=== PATIENT | female | born 1975 | race Caucasian/White ===

== ENCOUNTER → 2017-12-31 13:09 | Outpatient (CLI) | payer OTHER, SELFPAY ==
[2017-12-31 16:00] LABS: Absolute Lymphocyte Count 2.27 X10^3/ul (0.83-4.51); Absolute Neutrophil Count 6.6 X10^3/uL (2.0-7.7); Basophil# 0.02 X10^3/uL; Basophil% 0.2 % (0-1); Eosinophil# 0.31 X10^3/uL; Eosinophils% 3.2 % (0-5); Hematocrit 39.1 % (37-47); Hemoglobin 12.9 g/dl (12.0-15.0); Lymphocyte # 2.27 X10^3/ul (4.0); Lymphocyte % 23.1 % (19-41); Mean Corpuscular Hgb 30.4 pg (27.0-32.0); Mean Corpuscular Volume 92.2 fL (81-99); Mean Platelet Vol. 12.3 fl (6.2-12.0); Monocyte# 0.61 X10^3/uL; Monocyte% 6.2 % (0-10); Neutrophil # 6.59 X10^3/uL (2.7-7.7); Neutrophil % 67.2 % (47-70); Platelet Count 272 K/mm3 (150-450); RBC Distribution Width CV 13.3 % (11.6-14.6); RBC Distribution Width SD 45.1 fl (35.1-43.9); Red Blood Count 4.24 M/mm3 (4.2-5.4); White Blood Count 9.8 K/mm3 (4.4-11.0)
[2017-12-31 16:02] LABS: POSITIVE COUNT NO; POSITIVE DIFFERENTIAL NO; POSITIVE MORPHOLOGY NO
[2017-12-31 16:28] LABS: Vitamin B12 689 pg/mL (211-911)
[2017-12-31 16:36] LABS: Anion Gap 10 (5-15); BUN 22 mg/dL (7-18); BUN/Creat Ratio 29.5 RATIO (10-20); Calcium,Total 8.8 mg/dL (8.5-10.1); Chloride 103 mmol/L (98-107); Creatinine, Serum 0.75 mg/dL (0.55-1.02); EST Glomerular Filtration Rate 91 mL/min (>60); Est Glom Filt Rate - Afr Amer 111 mL/min (>60); Glucose 110 mg/dL (74-106); Potassium 3.9 mmol/L (3.5-5.1); Sodium Level 140 mmol/L (136-145); T4 Free Direct 1.16 ng/dL (0.76-1.46); Thyroid Stim Hormone (TSH) 1.63 uIU/mL (0.358-3.74)
== END ==
PROVIDERS: Visit Provider Family Medicine
DX: R53.83 Other fatigue (principal); R20.2 Paresthesia of skin
CPT/HCPCS: 36415; 80048; 82607; 84439; 84443; 85025

== ENCOUNTER → 2020-07-13 | Outpatient (CLI) | payer OTHER, SELFPAY ==
[2020-07-13 14:17] VITALS: BMI 19.3
[2020-07-19 16:38] LABS: HPV APTIMA, High Risk Negative (Negative)
== END | disposition home or self-care (01) ==
LOC: LABSPEC 16:46
PROVIDERS: PCP Family Medicine; Visit Provider Nurse Practitioner Women's Health
DX: Z12.4 Encounter for screening for malignant neoplasm of cervix (principal)
CPT/HCPCS: 87624; 88175; G0145

== ENCOUNTER → 2021-07-15 | Outpatient (CLI) | payer OTHER, SELFPAY ==
--- NOTE | 2021-07-15 13:47 | US_ITS ---
STUDY: LEFT BREAST ULTRASOUND EXAMINATION OF 1504 HOURS ON 07/15/2021 REASON FOR EXAM: 45-year-old female with palpable lesion in the left breast. TECHNIQUE: Axial and longitudinal images of the LEFT breast were performed with a high resolution ultrasound transducer. # OF IMAGES: 11 COMPARISON: None. FINDINGS: There is a 7 mm x 4 mm x 7mm simple cyst at 12:00 to 1:00 in the left breast lying 5 mm beneath the skin surface. There is no evidence of a cystic or solid mass lesions in the left breast. There is no evidence of left breast calcifications. Mild fibroglandular changes are present. US/Breast Limited Unilateral IMPRESSION: 1. Presence of a 7 mm x 4 mm x 7 mm simple cyst at 12:00 to 1:00 in the left breast lying 5 mm beneath the skin surface-thoracic site of the palpable lump. 2. No evidence of other cystic or solid mass lesions in the left breast. 3. Mild fibroglandular changes in the left breast. ASSESSMENT CATEGORY: BIRADS Category 1 ultrasound examination of the left breast. Electronically Signed: Herson Peterson MD at 19:37 EDT ,
--- NOTE | 2021-07-15 13:50 | BI_ITS ---
MAMMOGRAPHY - BILATERAL DIAGNOSTIC REASON FOR EXAM: Female, 45 years old. LUMP PERTINENT HISTORY: Non-contributory. TECHNIQUE: Digital examination. Mediolateral oblique (MLO) and craniocaudad (CC) views of both breasts were obtained. CAD: CAD was performed on this study. COMPARISON: 03/22/2018 FINDINGS: Breast Composition: The breasts are extremely dense, which lowers the sensitivity of mammography. There are no dominant masses or suspicious calcifications. No other significant abnormalities are identified. BI/DIAG MAMM W/CAD, BILAT IMPRESSION: Stable bilateral diagnostic mammogram. Ultrasound of the palpable abnormality in the upper outer quadrant of the left breast will be obtained. ASSESSMENT CATEGORY: BIRADS Category 0: Incomplete. Need additional imaging evaluation. A letter regarding these results will be sent to the patient by the facility within 30 days. FOLLOW UP RECOMMENDATION: Ultrasound Recommended. (I) Approximately 10% of breast cancers are not detected by mammography. A normal mammogram should not delay biopsy of a clinically suspicious abnormality. Electronically Signed: Isai Deutsch MD at 14:29 EDT ,
== END | disposition home or self-care (01) ==
PROVIDERS: PCP Family Medicine; Referring Provider Nurse Practitioner Women's Health; Visit Provider Nurse Practitioner Women's Health
DX: N63.0 Unspecified lump in unspecified breast (principal); R92.8 Other abnormal and inconclusive findings on diagnostic imaging of breast
CPT/HCPCS: 76642; 77062; 77066; G0279

== ENCOUNTER → 2022-09-04 | Outpatient (CLI) | payer OTHER, SELFPAY ==
[2022-09-04 12:33] LABS: Absolute Lymphocyte Count 1.82 X10^3/uL (0.83-4.51); Absolute Neutrophil Count 4.3 X10^3/uL (2.0-7.7); Basophil# 0.07 X10^3/uL; Basophil% 0.9 % (0-1); Eosinophil# 0.61 X10^3/uL; Eosinophils% 8.3 % (0-5); Hematocrit 41.8 % (37-47); Hemoglobin 13.6 g/dL (12.0-15.0); Lymphocyte # 1.82 X10^3/ul (0.83-4.51); Lymphocyte % 24.6 % (19-41); Mean Corp Hgb Conc 32.5 g/dL (32-36); Mean Corpuscular Volume 92.3 fL (81-99); Mean Platelet Vol. 11.8 fl (6.2-12.0); Monocyte# 0.59 X10^3/uL; NRBC Flagged by Analyzer 0 % (0-5); Neutrophil # 4.28 X10^3/uL (2.7-7.7); Neutrophil % 57.9 % (47-70); Platelet Count 253 K/mm3 (150-450); RBC Distribution Width SD 43.8 fl (35.1-43.9); Red Blood Count 4.53 M/mm3 (4.2-5.4); White Blood Count 7.4 K/mm3 (4.4-11.0)
[2022-09-04 13:57] LABS: ALB/GLOB Ratio 1.1 RATIO (0.9-2.4); AST(SGOT) 18 U/L (15-37); Alanine Aminotransfer ALT/SGPT 21 U/L (13-56); Albumin, Serum 3.7 g/dL (3.2-5.0); Alkaline Phosphatase 51 U/L (45-117); Anion Gap 8 (5-15); BUN 16 mg/dL (7-18); Calcium,Total 9.1 mg/dL (8.5-10.1); Chloride 106 mmol/L (98-107); Cholesterol 145 mg/dL (200); Creatinine, Serum 0.73 mg/dL (0.55-1.02); EST Glomerular Filtration Rate 92 mL/min (>60); Est Glom Filt Rate - Afr Amer 111 mL/min (>60); Globulin 3.4 g/dL (2.2-4.2); Glucose 78 mg/dL (74-106); High Density Lipoprotein 54 mg/dL; Magnesium 2.4 mg/dL (1.6-2.6); Potassium 3.7 mmol/L (3.5-5.1); Protein, Total 7.1 g/dL (6.4-8.2); Sodium Level 139 mmol/L (136-145); Triglycerides 86 mg/dL; Very Low Density Lipoprotein 17 mg/dL (5-40)
[2022-09-04 14:21] LABS: Hemoglobin A1c 5.2 % (3.8-5.6)
== END | disposition home or self-care (01) ==
LOC: BFHLAB 08:48
PROVIDERS: PCP Nurse Practitioner Family; Referring Provider Nurse Practitioner Family; Visit Provider Nurse Practitioner Family
DX: Z00.00 Encounter for general adult medical examination without abnormal findings (principal); E55.9 Vitamin D deficiency, unspecified; Z83.3 Family history of diabetes mellitus
CPT/HCPCS: 36415; 80053; 80061; 82306; 83036; 83735; 85025

== ENCOUNTER → 2023-03-15 | Outpatient (CLI) | payer OTHER, SELFPAY ==
--- NOTE | 2023-03-15 12:39 | RAD_ITS ---
HISTORY: constipation. TECHNIQUE: XR Abdomen 1 View. COMPARISON: 01/13/2016. FINDINGS: BOWEL GAS PATTERN: No dilated bowel loops identified. Scattered stool and air throughout the colon. FREE AIR: Not assessed on supine view. CALCIFICATIONS: No abnormal calcifications observed. BONES: Unremarkable. SOFT TISSUES: Lung bases clear. RAD/Abdomen Single View IMPRESSION: Non-obstructive bowel gas pattern. Electronically Signed: Patricia Cruz MD at 8:52 EST ,
--- OUTSIDE RECORDS SUMMARY | 2023-03-15 14:01 | XMS RPT_ITS | CCD ---
Author Name Unknown Address [id number] [place] [address] Organization [facility] Care Team Providers Care Technician Plant And Maintenance Name Role Phone Kayley BRODERICK, Neal Lambert Unavailable [phone] CALEB BATISTA Primary Care Unavailab le Allergies Allergy Classification Reported Allergen(s) Allergy Type Date of Onset Reaction(s) Facility (3 sources) amoxicillin / clavulanate drug allergy 09-19-[address] [facility] Work Phone: (3 sources) sulfamethoxazole / trimethoprim drug allergy 09-19-[address] [facility] Work Phone: (1 source) Sulfamethoxazole / Trimethoprim; Translations: [SULFAMETHOXAZOLE-TR IMETHOPRIM] Drug Allergy 02-15-19 16 [facility] (1 source) OTHER; Translations: [OTHER] Propensity to adverse reactions (disorder) 01-25-20 05 [facility] (1 source) AMOXICILLIN-POT CLAVULANATE; Translations: [AMOXICILLIN-POT CLAVULANATE] Propensity to adverse reactions to drug (disorder) 01-24-20 05 [facility] Medications Completed/Discontinued Medications Medication Drug Class(es) Dates Sig (Normalized) Sig (Original) calcium (1 source) Phosphate Binder, Calcium Start: 09-18-2016 take 1 tablet by mouth twice daily CALCIUM + D3 600-800 MG-UNIT TABS One tablet by mouth twice daily CALCIUM CARB-CHOLECALCIFERO L [id number] Neal Zaldivar MD CALCIUM CARB-CHOLECALCIFER OL (2 sources) Start: 09-18-2016 take 600-800 tablets by mouth twice daily CALCIUM + D3 600-800 MG-UNIT TABS One tablet by mouth twice daily CALCIUM CARB-CHOLECALCIFERO L [id number] Neal Zaldivar MD MULTIPLE VITAMINS-MINERALS (1 source) Start: 09-18-2016 take 1 tablet by mouth once daily DAILY MULTIVITAMIN CAPS One tablet by mouth daily MULTIPLE VITAMINS-MINERALS [id number] Neal Zaldivar MD MULTIPLE VITAMINS-MINERALS (2 sources) Start: 09-18-2016 take 1 tablet by mouth once daily DAILY MULTIVITAMIN CAPS One tablet by mouth daily MULTIPLE VITAMINS-MINERALS [id number] Neal Zaldivar MD Problems Active Problems Problem Classification Problem Date Documented Da te Episodic/Chronic Headache; including migraine (3 sources) Migraine; Translations: [Migraine, unspecified, not intractable, without status migrainosus] Onset: 09-18-2016 09-18-2016 Chronic Past or Other Problems Problem Classification Problem Date Documented Date Episodic/Chronic Headache; including migraine (3 sources) Pain of head and neck region; Translations: [Pain, unspecified] Onset: 09-18-2016 09-20-2016 Episodic Other complications of (3 sources) deep vein thrombosis with complication; Translations: [Deep phlebothrombosis in , unspecified trimester] Onset: 09-18-2016 09-18-2016 Episodic Other skin disorders (3 sources) Sebaceous cyst; Translations: [Sebaceous cyst] Onset: 09-18-2016 09-20-2016 Episodic Other skin disorders (1 source) Epidermoid cyst of skin; Translations: [Sebaceous cyst] Onset: 09-22-2016 10-16-2016 Episodic Results Test Name Value Interpretation Reference Range Facil ity Vital Signs Date Time Vital Sign Value Performing Clinician Facility 09-18-2016 10:24-0400 BMI (Body Mass Index) 19.39 kg/m2 Neal Zaldivar MD [facility] Work Phone: 09-18-2016 10:24-0400 BP Diastolic 73 mm[Hg] Neal Zaldivar MD [facility] Work Phone: 09-18-2016 10:24-0400 BP Systolic 101 mm[Hg] Neal Zaldivar MD [facility] Work Phone: 09-18-2016 10:24-0400 Height 162.56 cm Neal Zaldivar MD [facility] Work Phone: 09-18-2016 10:24-0400 Pulse (Heart Rate) 61 /min Neal Zaldivar MD [facility] Work Phone: 09-18-2016 10:24-0400 Respiratory Rate 16 /min Neal Zaldivar MD [facility] Work Phone: 09-18-2016 10:24-0400 Weight 51.26 kg Neal Zaldivar MD [facility] Work Phone: Encounters Encounter Date Encounter Type Care Provider Facility Start: 02-09-2023 End: 02-09-2023 ambulatory CALEB BATISTA Facility:[facility] Procedures Date Procedure Procedure Detail Performing Clinician Start: 09-22-2016 End: 10-16-2016 Biopsy skin subq&/mucous membrane ea addl lesn Neal Zaldivar MD Work Phone: Start: 09-22-2016 End: 10-16-2016 Bx skin subcutaneous&/mucous membrane 1 lesion Neal Zaldivar MD Work Phone: Plan of Treatment Date Care Activity Detail Author Start: 09-22-2016 End: 09-22-[address] [facility] Work Phone: [facility] Work Phone: Payers Date Payer Category Payer Unknown [id number] Progress note 02-09-2023 Note Date & Type Note Facility 02-09-2023 Note HNO ID: [id number] Author: CARTER TOLEDO APRN.FREIGHT SORTER Service: ? Author Type: Nurse Practitioner Type: Progress Notes Filed: 02/09/2023 17:04 Note Text: This note was created using NoteWriter. Krishna Block is a 47 year old female. 47 year old female with PMH migraines presents for complaints of illness. Acute onset 2 weeks ago +sore throat +dry cough +ear pain Denies N/V/D Denies fever or chills Denies malaise or fatigue Denies skin rash or lesions. Seen by her PCP last week for similar The history is provided by the patient. No escrow officer was used. URI She complains of cough. There is no chest tightness, difficulty breathing, frequent throat clearing, hemoptysis, hoarse voice, shortness of breath, sputum production or wheezing. This is a new problem. The current episode started 1 to 4 weeks ago. The problem occurs constantly. The problem has been unchanged. The cough is non-productive. Associated symptoms include ear congestion, ear pain, headaches, malaise/fatigue and a sore throat. Pertinent negatives include no appetite change, chest pain, dyspnea on exertion, fever, heartburn, myalgias, nasal congestion, orthopnea, PND, postnasal drip, rhinorrhea, sneezing, sweats, trouble swallowing or weight loss. Her symptoms are aggravated by nothing. Her symptoms are alleviated by nothing. She reports no improvement on treatment. There are no known risk factors for lung disease. There is no history of asthma,bronchiectasis, bronchitis, COPD, emphysema or pneumonia. PAST MEDICAL HISTORY Diagnosis Date Diabetes mellitus of mother, complicating , childbirth, or the puerperium, unspecified as to episode of care(648.00) Gestational diabetes Hx of blood clots 2012 during superficial Thrombophlebitis Migraine, unspecified, with intractable migraine, so stated, without mention of status migrainosus Migraine Other and unspecified ovarian cyst 2012 Ovarian cyst PMH - PAST MEDICAL HISTORY OF Seasonal allergies PMH - PAST MEDICAL HISTORY OF Irregular heartbeat Rh negative status during 07/22/2012 Urinary calculus, unspecified Renal stones Varicosities RIGHT LEG PAST SURGICAL HISTORY Procedure Laterality Date DELIVERY ONLY , low cervical DELIVERY ONLY 01/24/2013 , low transverse F SALPINGO-OOPHORECTOMY 2013 right, cystadenoma PAST SURGICAL HISTORY OF [place] teeth extracted PAST SURGICAL HISTORY OF cysts removed from head and torso ALLERGIES Bactrim [Sulfamethoxazole-Trimethoprim], Seasonal Allergies, and Augmentin [Amoxicillin-Pot Clavulanate] MEDICATIONS MAGNESIUM ORAL Take by mouth. cyanocobalamin, vitamin B-12, (VITAMIN B-12 ORAL) Take by mouth. CALCIUM CARBONATE/VITAMIN D3 (CALCIUM + D ORAL) Take 600 mg by mouth twice daily. multivitamin tablet Take 1 tablet by mouth once daily. phenazopyridine (PYRIDIUM) 100 mg tablet Take 1 tablet by mouth three times daily as needed for Pain. FAMILY HISTORY Problem Relation Age of Onset Arthritis Mother Cancer Mother skin ot melanoma Osteoporosis Maternal Grandmother Stroke Maternal Grandmother Heart Maternal Grandfather AL Diabetes Maternal Grandfather Diabetes Paternal Aunt Heart Sister irregular heartbeat Arthritis Paternal Aunt Arthritis Paternal Aunt Lipids Maternal Uncle Lipids Maternal Uncle Asthma Daughter other (hip fracture) Paternal Aunt Social History Tobacco Use Smoking status: Never Smokeless tobacco: Never Substance Use Topics Alcohol use: Yes Comment: Occasionally,NOT WHILE 2 per year Drug use: No Review of Systems Constitutional: Positive for malaise/fatigue. Negative for appetite change, fever and weight loss. HENT: Positive for ear pain and sore throat. Negative for hoarse voice, postnasal drip, rhinorrhea, sneezing and trouble swallowing. Eyes: Negative for pain, discharge, redness and itching. Respiratory: Positive for cough. Negative for apnea, hemoptysis, sputum production, choking, chest tightness, shortness of breath and wheezing. Cardiovascular: Negative for chest pain, dyspnea on exertion and PND. Gastrointestinal: Negative for abdominal pain, diarrhea, heartburn, nausea and vomiting. Musculoskeletal: Negative for arthralgias, back pain, gait problem and myalgias. Skin: Negative for color change, pallor, rash and wound. Allergic/Immunologic: Negative for environmental allergies, food allergies and immunocompromised state. Neurological: Positive for headaches. Negative for dizziness, facial asymmetry, light-headedness and numbness. Hematological: Negative for adenopathy. Does not bruise/bleed easily. Psychiatric/Behavioral: Negative for agitation and behavioral problems. Objective BP 115/80 Pulse 99 Temp 36.4 ?C (97.5 ?F) Resp 18 Wt 51.1 kg (112 lb 9.6 oz) LMP 03/13/2018 SpO2 99% BMI 19.03 kg/m? Physical E (more content not included)... [facility] Summary Purpose Family History No Family History Records Found Advance Directives No Advanced Directives Records Found Additional Source Comments INFORMATION SOURCE (unrecogn ized section and content) FOR RECORDS PERTAINING TO PATIENTS WHO ARE OR HAVE BEEN ENROLLED IN A CHEMICAL DEPENDENCY/SUBSTANCEABUSE PROGRAM, SOME INFORMATION MAY BE OMITTED. This clinical summary was aggregated from multiple sources. Caution should be exercised in using it in the provision of clinical care. This summary normalizes information from multiple sources, and as a consequence, information in this document may materially change the coding, format and clinical context of patient data. In addition, data may be omitted in some cases. CLINICAL DECISIONS SHOULD BE BASED ON THE PRIMARY CLINICAL RECORDS. [employer] [facility]. provides no warranty or guarantee of the accuracy or completeness of information in this document.
== END | disposition home or self-care (01) ==
LOC: MTRAD 12:37
PROVIDERS: PCP Nurse Practitioner Family; Referring Provider Family Medicine; Visit Provider Family Medicine
DX: K59.00 Constipation, unspecified (principal)
CPT/HCPCS: 74018

== ENCOUNTER 2024-01-19 19:53 | Emergency (ER) | payer OTHER, SELFPAY ==
[2024-01-19 19:55] VITALS: BP 77/50; PULSE 94; RESP 16; TEMP 36.7; O2SAT 97
[2024-01-19 20:08] VITALS: BP 94/66; PULSE 85; RESP 13; O2SAT 100
[2024-01-19 20:12] VITALS: BMI 19.7
--- NOTE | 2024-01-19 20:12 | EKG12_ITS ---
Test Reason : DYSRHYTHMIA Blood Pressure : */* mmHG Vent. Rate : 85 BPM Atrial Rate : 85 BPM P-R Int : 144 ms QRS Dur : 80 ms QT Int : 382 ms P-R-T Axes : 81 89 70 degrees QTcB Int : 454 ms Normal sinus rhythm Biatrial enlargement Abnormal ECG Confirmed by RUDY BRODERICK, RUBEN ([id number]), primer expeditor and drier HOUST[place] DAY ([id number]) on 01/23/2024 1:40:01 P M Referred By: Confirmed By: RUBEN GRANT MD
--- NOTE | 2024-01-19 20:12 | CT_ITS ---
STUDY: CT BRAIN WITHOUT CONTRAST REASON FOR EXAM: Female, 48 years old. headache, syncope RADIATION DOSAGE (If Supplied By Facility): CTDIvol = ( 44.99 ) mGy, DLP = ( 812.98 ) mGycm TECHNIQUE: Transaxial CT imaging of the brain was performed without administration of intravenous contrast material. Individualized dose optimization techniques were used for this CT. COMPARISON: No relevant priors. FINDINGS: Normal soft tissue structures. Normal calvarium. Normal size ventricles and extra-axial spaces for the patient''s age. Normal white matter tracts of the cerebral hemispheres. Normal basal ganglia and thalami. Normal brainstem. Normal cerebellum. There is no intracranial hemorrhage. There are no findings of an acute ischemic infarction. Trace mucosal thickening right ethmoid sinus. CT/Brain/Head without Contrast IMPRESSION: No acute findings. Trace chronic sinusitis. Electronically Signed: Shey Pepper MD at 21:20 EST Reading Location ID and State: [id number] / Tel , Service support ,
--- NOTE | 2024-01-19 20:14 | EDS_ITS ---
HPI History of Present Illness Chief Complaint: Nausea/Vomiting/Diarrhea Narrative Narrative: Patient is a 48-year-old female who presents to the emergency department chief complaint of nausea, vomiting, diarrhea, headache and not feeling well. Patient states that when she woke up this morning she had a headache that progressively worsened. States that she does have a history of migraines and this felt like a migraine. 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 According to the patient's significant other at bedside that he notes that around 3 PM this afternoon she started to have episodes of vomiting. She states that she is also had approximately 6 episodes of diarrhea. According to the significant other bedside he noted that while she was laying in the floor after taking a bath since she is not feeling well she appeared to pass out as he states that he was trying to wake her up and he cannot. Patient denies hitting her head. Patient states that she has not had chest pain, shortness of breath or lightheadedness dizziness prior to this episode. [facility] Medical History Varicose veins of legs Chronic constipation H/O blood clots Home Medications ?Medication ?Instructions ?Recorded ?Last Taken ?Type aspirin 81 mg tablet,delayed 81 mg PO DAILY 07/13/20 01/19/24 History release (Adult Aspirin Regimen) Allergy/AdvReac Type Severity Reaction Status Date / Time amoxicillin trihydrate (From Allergy Intermediate Hives Verified 01/19/24 19:57 Augmentin) sulfamethoxazole (From Allergy Intermediate Hives Verified 01/19/24 19:57 Bactrim) trimethoprim (From Bactrim) Allergy Intermediate Hives Verified 01/19/24 19:57 potassium clavulanate (From Allergy Hives Verified 01/19/24 19:57 Augmentin) Surgical History History of right oophorectomy S/P Social History household members: spouse and children number of children: 2 current occupational status: employed current occupation: [employer] history of recent travel: No sexually active: Yes Smoking Status: Never smoker alcohol intake: current alcohol intake frequency: holidays/special occasions only substance use type: does not use what type of physical activity do you participate in: walking seatbelt use: always do you feel safe at home: Yes additional social history: - Javad THOMASON ROS ED ROS Narrative Constitutional: Complains of headache as noted above denies fevers, chills, lightness, dizziness Eyes: Denies change in vision double vision blurry vision Cardiovascular: Denies chest pain or palpitations Respiratory: Denies coughing wheezing shortness of breath Abdomen: Denies abdominal pain nausea vomit diarrhea : Denies urinary symptoms Neurological: Denies any numbness,complains of generalized weakness, tingling Musculoskeletal: Denies back pain Skin: Denies any rashes or lesions EXAM Physical Exam Narrative Exam Narrative: General: Patient lying in bed rest comfortably did not appear to be in acute distress Head: Atraumatic, normocephalic Eyes, ears, nose, throat: Mucous membranes dry. PERRL bilateral, EOMI bilateral, no conjunctival injection noted Neck: Soft, supple, trachea midline Cardiovascular: Regular in rhythm no murmurs gallops rubs noted Respiratory: Clear to auscultation bilaterally no rales rhonchi or wheeze noted Abdomen: Soft, nondistended, no tenderness to palpation, bowel sounds present x 4 Extremities: +5/5 strength noted in the bilateral upper and lower extremities, radial pulses +2/4 in the bilateral per extremities Neurological: Patient follow commands and that she was at [facility] years 2023. NIH of 0 GCS 15 Skin: Warm, dry, intact no rashes or lesions noted Const Vital Signs: 01/19/24 19:55 01/19/24 20:08 01/19/24 21:00 Temperature 98.1 F 98.1 F Temperature Source Oral Oral Pulse Rate 94 85 92 Respiratory Rate 16 13 15 Blood Pressure 77/50 L 94/66 89/58 L Blood Pressure Mean 59 75 68 Pulse Ox 97 100 97 Oxygen Delivery Method Room Air Room Air Room Air 01/19/24 22:00 Temperature 98.1 F Temperature Source Oral Pulse Rate 91 Respiratory Rate 16 Blood Pressure 97/64 Blood Pressure Mean 75 Pulse Ox 100 Oxygen Delivery Method Room Air MDM MDM MDM Narrative Medical decision making narrative: Patient is a 48-year-old female who presented to the emergency department chief complaint of nausea, vomiting, diarrhea and a headache. Patient will have workup performed here on the differential diagnose includes but not limited to migraine headache, viral gastroenteritis, vasovagal syncope, ACS, intracranial hemorrhage. Patient be given IV fluids, Reglan and be reevaluated. Patient CBC reviewed and was significant for leukocytosis of 20,000, hemoglobin was 13.7, plate count normal at 234. Patient's sodium was noted to be normal at 138, potassium was 3.5, creatinine was 0.52. Patient AST and ALT are 14 and 20 respectively, lipase normal at 24. Patient's urinalysis reviewed and showed 150 ketones, negative nitrates, 100 leukocyte esterase and microscopic urine is pending. Patient's chest x-ray reviewed by myself and radiology showed no acute cardiopulmonary process. Patient CT and brain reviewed showed no acute findings. Discussed with the patient her history of blood clots and she states that this occurred with and she has not had any issues since then. Do believe her syncopal/near syncopal episode after taking a hot shower and laying down was likely a vasovagal response. Will add on a CT abdomen pelvis with IV contrast to ensure there is nothing further going on in her abdomen. Patient's case will be signed out to overnight physician to review this and make ultimate disposition. At 2232 patient did ambulate here in the emergency department she states that she is feeling significantly improved at this point time. Lab Data Labs: Laboratory Results - last 24 hr 01/19/24 20:15 WBC 22.6 H RBC 4.56 Hgb 13.7 Hct 40.3 MCV 88.4 MCH 30.0 MCHC 34.0 RDW Std Deviation 42.4 RDW Coeff of Antonia 13.1 Plt Count 234 MPV 11.7 Immature Gran % (Auto) 0.600 Neut % (Auto) 91.3 H Lymph % (Auto) 1.8 L Wilcox % (Auto) 4.9 Eos % (Auto) 1.0 Baso % (Auto) 0.4 Absolute Neuts (auto) 20.7 H Absolute Lymphs (auto) 0.40 L Nucleated RBC % 0 Differential Comment SCANNED Sodium 138 Potassium 3.5 Chloride 108 H Carbon Dioxide 22.0 Anion Gap 9 BUN 21 H Creatinine 0.52 L Estim Creat Clear Calc 111.19 Est GFR (MDRD) Af Amer 162 Est GFR (MDRD) Non-Af 134 BUN/Creatinine Ratio 40.2 H Glucose 133 H Calcium 8.7 Total Bilirubin 0.70 AST 14 L ALT 20 Alkaline Phosphatase 46 Total Protein 6.8 Albumin 3.7 Globulin 3.1 Albumin/Globulin Ratio 1.2 Lipase 24 Radiography Diagnostic Testing: Clinical Impression(s) from Imaging Studies Brain CT 01/19/24 20:12 IMPRESSION: No acute findings. Trace chronic sinusitis. Electronically Signed: Shey Pepper MD at 21:20 EST Reading Location ID and State: [place] / Tel , Service support , Chest X-Ray 01/19/24 20:50 IMPRESSION: No radiographic evidence of acute cardiopulmonary disease. Electronically Signed: Shey Pepper MD at 21:58 EST Reading Location ID and State: [id number] / Tel , Service support , Discharge Plan Triage Chief Complaint: Nausea/Vomiting/Diarrhea ED Provider: Manpreet Mcleod Dx/Rx/DC Orders Prescriptions: No Action aspirin [Adult Aspirin Regimen] 81 mg tablet,delayed release (DR/EC) 81 mg PO DAILY Primary Care Provider: Liudmila Bach Referrals: Liudmila Bach, SALES AND MARKETING ADMINISTRATOR-C [Primary Care Provider] - Print Language: Portuguese
[2024-01-19] MEDS: 0.9% Normal Saline (1000mL) 1,000 ML 999 ML IV ×2 (20:22→22:07)
[2024-01-19] MEDS: Metoclopramide 10 MG/2 ML Vial IV (20:23)
[2024-01-19] MEDS: Acetaminophen 500 MG Tablet 1000 MG PO (20:23)
[2024-01-19 20:49] LABS: Absolute Neutrophil Count 20.7 X10^3/uL (2.0-7.7); Basophil# 0.08 X10^3/uL; Basophil% 0.4 % (0-1); Eosinophil# 0.22 X10^3/uL; Hematocrit 40.3 % (37-47); Hemoglobin 13.7 g/dL (12.0-15.0); Lymphocyte % 1.8 % (19-41); Mean Corpuscular Volume 88.4 fL (81-99); Mean Platelet Vol. 11.7 fl (6.2-12.0); Monocyte# 1.11 X10^3/uL; Monocyte% 4.9 % (0-10); NRBC Flagged by Analyzer 0 % (0-5); Neutrophil # 20.68 X10^3/uL (2.7-7.7); Neutrophil % 91.3 % (47-70); POSITIVE DIFFERENTIAL YES; Platelet Count 234 K/mm3 (150-450); RBC Distribution Width CV 13.1 % (11.6-14.6); RBC Distribution Width SD 42.4 fl (35.1-43.9); Red Blood Count 4.56 M/mm3 (4.2-5.4); White Blood Count 22.6 K/mm3 (4.4-11.0)
--- NOTE | 2024-01-19 20:50 | RAD_ITS ---
INDICATION: syncope EXAMINATION/TECHNIQUE: X-RAY - XR Chest 2 Views COMPARISON: FINDINGS: LINES/DEVICES: None. LUNGS: No consolidation, edema or effusion. No pneumothorax. MEDIASTINUM AND CARDIOVASCULAR STRUCTURES: Cardiac silhouette not enlarged. Central airways and mediastinal contour are unremarkable. BONES AND SOFT TISSUES: Unremarkable. RAD/Chest PA and Lateral IMPRESSION: No radiographic evidence of acute cardiopulmonary disease. Electronically Signed: Shey Pepper MD at 21:58 EST Reading Location ID and State: [id number] / Tel , Service support ,
[2024-01-19 20:53] LABS: Differential Indicated SCAN CRITERIA MET
[2024-01-19 21:00] VITALS: BP 89/58; PULSE 92; RESP 15; TEMP 36.7; O2SAT 97
[2024-01-19 21:06] LABS: ALB/GLOB Ratio 1.2 RATIO (0.9-2.4); AST(SGOT) 14 U/L (15-37); Alanine Aminotransfer ALT/SGPT 20 U/L (13-56); Albumin, Serum 3.7 g/dL (3.2-5.0); Alkaline Phosphatase 46 U/L (45-117); Anion Gap 9 (5-15); BUN 21 mg/dL (7-18); BUN/Creat Ratio 40.2 RATIO (10-20); Calcium,Total 8.7 mg/dL (8.5-10.1); Chloride 108 mmol/L (98-107); Creatinine, Serum 0.52 mg/dL (0.55-1.02); EST Glomerular Filtration Rate 134 mL/min (>60); Est Glom Filt Rate - Afr Amer 162 mL/min (>60); Estimated Creatinine Clearance 111.19 ml/min; Globulin 3.1 g/dL (2.2-4.2); Glucose 133 mg/dL (74-106); Lipase 24 U/L (13-75); Potassium 3.5 mmol/L (3.5-5.1); Protein, Total 6.8 g/dL (6.4-8.2); Sodium Level 138 mmol/L (136-145)
[2024-01-19 21:27] LABS: Differential Comment SCANNED
[2024-01-19 22:00] VITALS: BP 97/64; PULSE 91; RESP 16; TEMP 36.7; O2SAT 100
--- NOTE | 2024-01-19 22:00 | CT_ITS ---
INDICATION: elevated wbc EXAMINATION: CT Abdomen And Pelvis W/ Contrast Injection TECHNIQUE: Helically acquired images were obtained of the abdomen and pelvis with sagittal and coronal reconstructed images. Individualized dose optimization techniques were used for this CT. IV contrast dosage and agent: 75 mL of Isovue-[id number]. Oral contrast: None. COMPARISON: None. FINDINGS: VESSELS: No abdominal aortic aneurysm or dissection. LIVER: No evidence of a mass. No intrahepatic or extrahepatic biliary duct dilation. Hepatomegaly. GALLBLADDER: No calcified stones. No evidence of cholecystitis. PANCREAS: No focal solid or cystic mass. No evidence of pancreatitis. SPLEEN: Normal. ADRENAL GLANDS: Normal. KIDNEYS AND URETERS: No urinary tract stone. No hydronephrosis or hydroureter. No significant asymmetric perinephric stranding. URINARY BLADDER: Unremarkable. BOWEL: No evidence of diverticulosis or diverticulitis. Appendix not identified. No evidence of bowel obstruction. REPRODUCTIVE ORGANS: No evidence of a pelvic mass. PERITONEUM: No intraabdominal free fluid or free air. LYMPH NODES: No pathologically enlarged mesenteric or retroperitoneal lymph nodes. ABDOMINAL WALL: No abdominal or pelvic wall hernia. Diastasis of the rectus abdominis muscles. BONES: No acute abnormality. LOWER CHEST: Visualized lung bases are unremarkable. CT/Abdomen/Pelvis W IV Cont ONLY IMPRESSION: No acute abnormality. Electronically Signed: Tex Castle DO at 23:12 [facility] ,
[2024-01-19 22:27] LABS: Color, Urine Yellow (Yellow); Glucose, Dipstick Normal (Normal); Leukocyte Esterase-Dipstick 100 /ul (Negative); Nitrite-Dipstick Negative (Negative); Occult Blood-Urine 250 /ul (Negative); Protein-Dipstick 30 mg/dl (Negative); Specific Gravity, Urine 1.025 (1.002-1.030); Urine Clarity Sl. Cloudy (Clear); Urine Urobilinogen Normal (Normal)
[2024-01-19 22:28] LABS: Urine Bilirubin Dipstick 1 mg/dL (Negative)
[2024-01-19 22:29] LABS: Ketone-Dipstick 150 mg/dl (Negative)
[2024-01-19 22:33] LABS: Red Blood Cells-Urine 5-10 SEEN /hpf (0-5); Squamous Epithelial Cells - UA 0-5 SEEN /hpf (5-10); White Blood Cells 5-10 SEEN /hpf (0-5)
[2024-01-19 22:34] LABS: Bacteria RARE /hpf (None Seen); Internal QC Validated? YES +Cl - CLEAR BKGD; Mucous, Urine 1+ /hpf (<or=2+); Pregnancy, Urine Negative Negative; Renal Epithelial Cells 0-5 SEEN /hpf (0-5)
[2024-01-19 23:00] VITALS: BP 88/62; PULSE 72; RESP 12; O2SAT 99
[2024-01-19 23:16] VITALS: BP 87/58
[2024-01-20] VITALS: BP 97/63; PULSE 78; PULSE 89; RESP 14; RESP 16; TEMP 36.6; O2SAT 97; O2SAT 99
== END 2024-01-20 00:18 | disposition home or self-care (01) ==
PROVIDERS: Emergency Provider Emergency Medicine; PCP Nurse Practitioner Family; Visit Provider Emergency Medicine
DX: E86.0 Dehydration (principal); R11.2 Nausea with vomiting, unspecified; R19.7 Diarrhea, unspecified; Z79.82 Long term (current) use of aspirin; R51.9 Headache, unspecified
CPT/HCPCS: 70450; 71046; 74177; 80053; 81001; 81025; 83690; 85025; 87040; 87631; 93005; 96361; 96374; 99283; Q9967; A4216

== ENCOUNTER → 2024-08-04 | Outpatient (CLI) | payer OTHER, SELFPAY ==
--- NOTE | 2024-08-04 11:00 | BI_ITS ---
EXAM: SCRN MAMM (CAD)W/MANDY BILAT DATE: 08/04/2024 CLINICAL HISTORY: F, Age 48 y/o , SCREENING MAMMOGRAM FOR BREAST CANCER TECHNIQUE: SCRN MAMM (CAD)W/MANDY BILAT COMPARISON: Prior exam(s) dated 07/15/2021, 03/22/2018. FINDINGS: TISSUE DENSITY: The breasts are extremely dense, which lowers the sensitivity of mammography. The mammogram demonstrates that the patient has dense breasts. Supplemental screening with whole breast ultrasound or MRI may be considered for further evaluation. Bilateral Breast Mammographic Findings: No significant masses, calcifications or other abnormalities are identified. BI/SCRN MAMM (CAD)W/MANDY BILAT IMPRESSION: There is no mammographic evidence of malignancy. OVERALL FINAL ASSESSMENT BI-RADS 1: NEGATIVE. RECOMMEND ANNUAL MAMMOGRAPHIC SCREENING. RECOMMENDATION: Routine annual follow-up in 1 Year A letter with findings and recommendations will be mailed to the patient. Reading Location: [id number]
== END | disposition home or self-care (01) ==
LOC: OPBI 10:46
PROVIDERS: PCP Nurse Practitioner Family; Referring Provider Obstetrics & Gynecology; Visit Provider Obstetrics & Gynecology
DX: Z12.31 Encounter for screening mammogram for malignant neoplasm of breast (principal)
CPT/HCPCS: 77063; 77067

== ENCOUNTER → 2025-02-03 | Outpatient (CLI) | payer OTHER, SELFPAY ==
--- NOTE | 2025-02-03 10:59 | RAD_ITS ---
PROCEDURE: L/S SPINE MIN 4 VIEWS 02/03/2025 REASON FOR EXAM: DORSALGIA, CERVICALGIA TECHNIQUE: Procedure Code: [id number] Modality: DX Procedure: L/S SPINE MIN 4 VIEWS five views COMPARISON: None FINDINGS: There is anatomic alignment of the lumbar spine. No acute or chronic fracture, pars defect, or spondylolisthesis. Disc spaces well-preserved Prevertebral soft tissues are unremarkable RAD/L/S Spine Min 4 Views IMPRESSION: Unremarkable lumbar spine Reading Location: [id number]
--- NOTE | 2025-02-03 10:59 | RAD_ITS ---
PROCEDURE: THORACIC SPINE 2 VIEWS 02/03/2025 REASON FOR EXAM: DORSALGIA, CERVICALGIA TECHNIQUE: Procedure Code: [id number] Modality: DX Procedure: THORACIC SPINE 2 VIEWS COMPARISON: None FINDINGS: No fracture, absent pedicle, or paraspinal mass. Mild disc space narrowing noted in the upper thoracic spine. Normal relationship between C7 and T1 and between T12 and L1 RAD/Thoracic Spine 2 Views IMPRESSION: Mild degenerative changes, no acute findings Reading Location: [id number]
--- NOTE | 2025-02-03 10:59 | RAD_ITS ---
PROCEDURE: CERV SPINE 4 OR 5 VIEWS 02/03/2025 REASON FOR EXAM: DORSALGIA, CERVICALGIA TECHNIQUE: [facility] Procedure: CERV SPINE 4 OR 5 VIEWS FINDINGS: Straight alignment. No compression fracture. No prevertebral soft tissue swelling. No spondylolisthesis. No disc space narrowing. Patent appearing intervertebral foramina. Clear lung apices. No odontoid abnormality. Facets appear well aligned. RAD/Cerv Spine 4 or 5 Views IMPRESSION: Unremarkable. Reading Location[facility]
== END | disposition home or self-care (01) ==
LOC: MTRAD 10:57
PROVIDERS: PCP Nurse Practitioner Family; Referring Provider Nurse Practitioner Family; Visit Provider Nurse Practitioner Family
DX: M54.9 Dorsalgia, unspecified (principal); M54.2 Cervicalgia
CPT/HCPCS: 72050; 72070; 72110